=== PATIENT | male | born 1985 | race Caucasian/White ===

== ENCOUNTER 2019-05-24 02:12 | Emergency (ER) | payer OTHER ==
[~2019-05-24] VITALS: Ht 170.2 cm; Wt 108.9 kg
[2019-05-24 02:20] VITALS: BP 162/114
--- NOTE | 2019-05-24 02:20 | NUR ---
Note dick in EDM - 05/24/19 at 0425 by LEONOR ED Nurse Note: pt walked in c/o pain when urinating x 2wk. hx kidney stones. pt was able to provided urine specimen.
--- NOTE | 2019-05-24 02:20 | NUR ---
ED Nurse Note: pt walked in c/o pain when urinating x 2wk. hx kidney stones. pt was able to provide urine specimen. at bedside. pt placed in gown. bed at lowest position with x 2 siderails.
--- NOTE | 2019-05-24 02:20 | NUR ---
Note dick in EDM - 05/24/19 at 0224 by LEONOR ED Nurse Note: pt walked in c/o pain when urinating x 2wk. hx kidney stone
--- NOTE | 2019-05-24 02:34 | Emergency Room Report ---
History of Present Illness General Chief Complaint: Male Urogenital Problems Source: Patient Present Illness HPI This a 33-year-old male with a history of kidney stone. Presents with chief complaint of some dysuria and pain. Onset and off for last 2 weeks or worsen tonight. Pain is 3 out of 10. Worse with urination. No blood. No fever chills. States similar to his previous kidney stone. Denies any other complaint. Allergies: Coded Allergies: No Known Allergies (Unverified , 05/24/19) Patient History Past Medical History: see triage record, old chart reviewed Past Surgical History: none Pertinent Family History: none Social History: Denies: smoking Immunizations: other Reviewed Nursing Documentation: PMH: Agreed; PSxH: Agreed Nursing Documentation-PMH Past Medical History: No History, Except For Hx Dialysis: No - KIDNEY STONE Review of Systems Eye: Denies: eye pain, blurred vision ENT: Denies: ear pain, nose congestion, throat swelling Respiratory: Denies: cough, shortness of breath Cardiovascular: Denies: chest pain, palpitations Gastrointestinal: Denies: abdominal pain, diarrhea, nausea, vomiting Genitourinary: Reports: dysuria Musculoskeletal: Denies: back pain, joint pain Skin: Denies: rash Neurological: Denies: headache, numbness Endocrine: Denies: increased thirst, increased urine Hematologic/Lymphatic: Denies: easy bruising All Other Systems: negative except mentioned in HPI Physical Exam Vital Signs Date Time Temp Pulse Resp B/P (MAP) Pulse Ox O2 Delivery O2 Flow Rate FiO2 05/24/19 02:16 98.1 86 18 162/114 (130) 95 Room Air Vitals with high blood pressure Sp02 EP Interpretation: reviewed, normal General Appearance: well appearing, no apparent distress, alert Head: normocephalic, atraumatic Eyes: bilateral eye PERRL, bilateral eye EOMI ENT: hearing grossly normal, normal pharynx Neck: full range of motion, supple, no meningismus Respiratory: chest non-tender, lungs clear, normal breath sounds Cardiovascular #1: regular rate, rhythm, no murmur Gastrointestinal: normal bowel sounds, non tender, no mass, no organomegaly, no bruit, non-distended Musculoskeletal: back normal, gait/station normal, normal range of motion Psychiatric: mood/affect normal Medical Decision Making Diagnostic Impression: Primary Impression: Ureteral calculus, left Additional Impression: Hypertension Qualified Codes: I10 - Essential (primary) hypertension ER Course Patient presents with ureteral stone and renal colic. He does have mild left hydronephrosis pain is better control. No evidence of any appendicitis or infection. Will discharge home. CT/MRI/US Diagnostic Results CT/MRI/US Diagnostic Results : Imaging Test Ordered: CT abdomen and pelvis Impression Read by radiologist. 3 mm left UVJ stone with mild left hydronephrosis. Last Vital Signs Date Time Temp Pulse Resp B/P (MAP) Pulse Ox O2 Delivery O2 Flow Rate FiO2 05/24/19 02:20 98.1 86 18 162/114 95 Room Air Status: improved Disposition: HOME, SELF-CARE Condition: Stable Scripts Tamsulosin HCl (Flomax) 0.4 Mg Cap.er.24h 0.4 MG ORAL DAILY, #30 CAP Prov: Marky Carlson MD 05/24/19 Ibuprofen* (MOTRIN*) 600 Mg Tablet 600 MG ORAL THREE TIMES A DAY, #30 TAB 0 Refills Prov: Marky Carlson MD 05/24/19 Hydrocodone/Acetaminophen 5-325* (HYDROCODONE/ACETAMINOPHEN 5-325*) 1 Each Tablet 1 TAB ORAL Q6H PRN for For Pain, #15 TAB 0 Refills Prov: Marky Carlson MD 05/24/19 Additional Instructions: Increase fluids. Cut down salt intake. Increase exercise. Follow-up with your doctor in 7 days. You will need recheck on your blood pressure. You may need a referral to see a urologist for your kidney stone. Return if worse. Marky Carlson MD May 24, 2019 02:34
--- NOTE | 2019-05-24 02:41 | NUR ---
ED Nurse Note: pt left for CT
[2019-05-24 02:43] LABS: APPEARANCE,URINE SLIGHTLY CLOUDY; BILIRUBIN, URINE NEGATIVE (NEGATIVE); GLUCOSE, URINE (UA) NEGATIVE (NEGATIVE); KETONES,URINE 1+ (NEGATIVE); LEUKOCYTE ESTERASE ,URINE 1+ (NEGATIVE); NITRITE,URINE NEGATIVE (NEGATIVE); PH,URINE 5 (4.5-8.0); PROTEIN,URINE 3+ (NEGATIVE); UROBILINOGEN,URINE 1 MG/DL (0.0-1.0)
[2019-05-24 02:44] LABS: COLOR,URINE YELLOW
--- NOTE | 2019-05-24 03:18 | Diagnostic Imaging Report ---
Indication: Abdominal pain for 2 days Technique: Spiral acquisitions obtained through the abdomen and pelvis. No oral contrast utilized, per emergency room physician request No IV contrast utilized, per referring physician request.. Multiplanar reconstructions were generated. Total dose length product 1085.02 mGycm. CTDIvol(s) 19.28 mGy. Dose reduction achieved using automated exposure control Comparison: None Findings: There is a 2 mm calculus within the distal left ureter at the ureteral orifice. This results in mild ectasia of the left ureter and minimal hydronephrosis. There is also a 2 mm nonobstructing duct upper pole intrarenal calculus. No right renal or ureteral calculi, hydronephrosis, or hydroureter. No significant perinephric fat stranding. Lack of IV contrast limits assessment of the renal parenchyma. No gross renal parenchymal mass or cyst demonstrated. Normal appendix. Somewhat prominent pericecal nodes are seen in the right lower quadrant. There are small colonic diverticula present. No evidence of diverticulitis. No small bowel distention. No free or loculated intraperitoneal gas or fluid is evident. The distal esophagus, stomach, duodenum are unremarkable. Lack of IV contrast limits assessment of the other solid organs. The liver is mildly hypoattenuating. No focal abnormality. The gallbladder is contracted, unremarkable. The pancreas demonstrates a calcification in the tail. The spleen is mildly enlarged, measuring 14.3 cm long axis dimension. There is a small accessory splenule. The adrenals are unremarkable. No pelvic mass or adenopathy. The included lung bases are clear. The bones are unremarkable. Impression: Positive for 2 mm distal left ureteral calculus. Minimal resultant hydronephrosis and hydroureter. Nonobstructive 2 mm left upper pole intrarenal calculus Borderline splenomegaly Colonic diverticulosis. No evidence of diverticulitis Fatty liver This agrees with the preliminary interpretation provided overnight by [facility] teleradiology service. The CT scanner at [facility] is accredited by the [employer] and the scans are performed using protocols designed to limit radiation exposure to as low as reasonably achievable to attain images of sufficient resolution adequate for diagnostic evaluation.
[2019-05-24] MEDS ORDERED: HYDROcodone/Acetamin 5/325 tab ORAL ONE (03:30)
[2019-05-24] MEDS ORDERED: Ketorolac 30mg Inj IV ONE (03:30)
[2019-05-24] MEDS ORDERED: Morphine Sulfate 4mg/ml Inj (IV USE ONLY) IVP ONE (03:30)
--- NOTE | 2019-05-24 03:35 | NUR ---
ED Nurse Note: Blood sent to labs.
[2019-05-24 03:48] VITALS: BP 145/93
[2019-05-24 03:54] LABS: BASOPHILS % (AUTO) 1.2 % (0.0-2.0); EOSINOPHILS % (AUTO) 1.4 % (0.0-3.0); HEMATOCRIT 49.5 % (42.0-52.0); HEMOGLOBIN 16.7 G/DL (14.2-18.0); LYMPHOCYTES % (AUTO) 34.6 % (20.0-45.0); MEAN CORPUSCULAR VOLUME 84 FL (80-99); MONOCYTES % (AUTO) 6.3 % (1.0-10.0); NEUTROPHILS % (AUTO) 56.5 % (45.0-75.0); PLATELET COUNT 337 K/UL (150-450); RED BLOOD COUNT 5.88 M/UL (4.70-6.10); RED CELL DISTRIBUTION WIDTH 12.1 % (11.6-14.8); WHITE BLOOD COUNT 9.4 K/UL (4.8-10.8)
[2019-05-24 04:03] LABS: ANION GAP 11 mmol/L (5-15); BLOOD UREA NITROGEN 18 mg/dL (7-18); CALCIUM 9.5 MG/DL (8.5-10.1); CARBON DIOXIDE 26 MMOL/L (21-32); CHLORIDE 106 MMOL/L (98-107); CREATININE 1.1 MG/DL (0.55-1.30); POTASSIUM 4.2 MMOL/L (3.5-5.1); SODIUM 142 MMOL/L (136-145)
[2019-05-24] MEDS ORDERED: HYDROCODON-ACE1 EA15 ORAL (04:19)
[2019-05-24] MEDS ORDERED: FLOMAX0.4 MG ORAL (04:19)
[2019-05-24] MEDS ORDERED: IBUPROFEN600 MG ORAL (04:19)
[2019-05-24] MEDS ORDERED: PERCOCET 5-3251 EACH ORAL (04:28)
[2019-05-24 04:35] VITALS: BP 140/88
--- NOTE | 2019-05-24 04:35 | NUR ---
ER DISCHARGE NOTE: Patient is cleared to be discharged per ERMD, pt is aox4, on room air, with stable vital signs. pt was given dc and prescription instructions, pt was able to verbalize understanding, pt id band and iv site removed without complications. pt is able to ambulate with steady gait. pt took all belongings.
== END 2019-05-24 04:35 | disposition home or self-care (01) ==
LOC: EMR 02:30
DX: N13.2 Hydronephrosis with renal and ureteral calculous obstruction (principal); Z87.442 Personal history of urinary calculi; I10 Essential (primary) hypertension
CPT/HCPCS: 36415; 74176; 80048; 81003; 85025; 96361; 96374; 96375; 99284; J1885; J2270; J2405

== ENCOUNTER 2020-03-11 13:01 | Emergency (ER) | payer OTHER ==
[~2020-03-11] VITALS: Ht 172.7 cm; Wt 102.1 kg
[~2020-03-11 13:01] MED LIST: FLOMAX0.4 MG ORAL; HYDROCODON-ACE1 EA15 ORAL; IBUPROFEN600 MG ORAL; PERCOCET 5-3251 EACH ORAL
[2020-03-11 13:13] VITALS: BP 177/95
[2020-03-11] MEDS ORDERED: Omnipaque-300 100ml vial INJ PRN (13:15)
[2020-03-11] MEDS ORDERED: Ketorolac 30mg Inj IV ONE (13:15)
--- NOTE | 2020-03-11 13:15 | NUR ---
ED Nurse Note: Pt from home walked in due to localized left flank pain and urinary urgency since this morning. Denies fever or chills. No reports of blood in his urine. AAO x4 and ambulatory with non labored breathing.
--- NOTE | 2020-03-11 13:37 | NUR ---
ED Nurse Note: Blood collected and sent. Estrella/JASMIN adhikari for pt to drink water. Water provided at this time.
[2020-03-11 13:48] LABS: BASOPHILS % (AUTO) 0.8 % (0.0-2.0); EOSINOPHILS % (AUTO) 1.6 % (0.0-3.0); HEMATOCRIT 54.5 % (42.0-52.0); HEMOGLOBIN 17.7 G/DL (14.2-18.0); LYMPHOCYTES % (AUTO) 29.9 % (20.0-45.0); MEAN CORPUSCULAR VOLUME 89 FL (80-99); MONOCYTES % (AUTO) 4.3 % (1.0-10.0); NEUTROPHILS % (AUTO) 63.4 % (45.0-75.0); PLATELET COUNT 328 K/UL (150-450); RED BLOOD COUNT 6.15 M/UL (4.70-6.10); RED CELL DISTRIBUTION WIDTH 12.4 % (11.6-14.8); WHITE BLOOD COUNT 9.2 K/UL (4.8-10.8)
[2020-03-11 13:58] LABS: INR 1.1 (0.9-1.1)
[2020-03-11 14:00] LABS: APPEARANCE,URINE CLEAR; BILIRUBIN, URINE NEGATIVE (NEGATIVE); GLUCOSE, URINE (UA) NEGATIVE (NEGATIVE); KETONES,URINE 1+ (NEGATIVE); LEUKOCYTE ESTERASE ,URINE NEGATIVE (NEGATIVE); NITRITE,URINE NEGATIVE (NEGATIVE); PH,URINE 5 (4.5-8.0); PROTEIN,URINE 1+ (NEGATIVE); UROBILINOGEN,URINE NORMAL MG/DL (0.0-1.0)
[2020-03-11 14:07] LABS: ANION GAP 10 mmol/L (5-15); BLOOD UREA NITROGEN 14 mg/dL (7-18); CALCIUM 9.2 MG/DL (8.5-10.1); CARBON DIOXIDE 28 MMOL/L (21-32); CHLORIDE 102 MMOL/L (98-107); CREATININE 1.2 MG/DL (0.55-1.30); POTASSIUM 3.8 MMOL/L (3.5-5.1); SODIUM 140 MMOL/L (136-145)
[2020-03-11 14:07] LABS: COLOR,URINE YELLOW
[2020-03-11 14:12] LABS: ALANINE AMINOTRANSFERASE 45 U/L (12-78); ALBUMIN 4.5 G/DL (3.4-5.0); ALBUMIN/GLOBULIN RATIO 1.1 (1.0-2.7); ALKALINE PHOSPHATASE 120 U/L (46-116); ASPARTATE AMINO TRANSFERASE 25 U/L (15-37); BILIRUBIN,TOTAL 0.6 MG/DL (0.2-1.0); CREATINE KINASE 51 U/L (26-308)
--- NOTE | 2020-03-11 14:38 | NUR ---
ED Nurse Note: Pt taken to CT in stable condition.
--- NOTE | 2020-03-11 14:55 | NUR ---
ED Nurse Note: Pt came back from CT and stable.
[2020-03-11 15:02] VITALS: BP 165/90
--- NOTE | 2020-03-11 15:10 | Diagnostic Imaging Report ---
EXAM: CT CT Abdomen Pelvis w/Contrast INDICATION: Left flank pain and urinary urgency since this morning. COMPARISON: None TECHNIQUE: Axial images were obtained through the abdomen pelvis with intravenous contrast. Sagittal and coronal reformats are generated. All CT scans at this facility are performed using dose modulation techniques as appropriate to a performed exam including the following: automated exposure control with adjustment of the mA and/or kV according to patient size. RADIATION DOSE: CTDIvol: 16.8 mGy DLP: 919.9 mGy-cm Dose information generated by the CT scanner is available in PACS. FINDINGS: The lung bases are clear. Mild diffuse fatty liver noted. Spleen is homogeneous Gallbladder is without sludge or stone and there is no wall thickening. Pancreas is homogeneous except for punctate calcification at the patella. Adrenals are normal in morphology. The kidneys are normal in size, shape and axis. Small bowel loops are nondistended. The colon is also nondistended with average amount of stool. The appendix is normal. There is no free fluid or free air. A few small lymph nodes identified in the right lower quadrant mesentery. Bladder is nondistended. There are 2 small fat density foci noted in the bladder wall along the anterior and also the left lateral margin. Findings suggest possible small bladder wall lipomas. There is no suspicious superficial soft tissue or osseous abnormality. IMPRESSION: THERE ARE 2 SMALL FAT DENSITY FOCI NOTED IN THE BLADDER WALL, ALONG THE ANTERIOR AND LEFT LATERAL MARGINS SUGGESTIVE OF SMALL BLADDER WALL LIPOMAS. MILD FATTY LIVER. NO RENAL STONE OR HYDRONEPHROSIS.
--- NOTE | 2020-03-11 16:46 | Diagnostic Imaging Report ---
Procedure: XRAY Chest 1v Reason for study: Chest pain Comparison films: None. FINDINGS: A single one view chest is obtained. Vascularity is normal. The lung nathan are clear bilaterally. Cardiac and mediastinal silhouette are within normal limits. CP angles are sharp. The bony thorax appear unremarkable. IMPRESSION: NO ACUTE CARDIOPULMONARY DISEASE.
--- NOTE | 2020-03-11 16:55 | Emergency Room Report ---
History of Present Illness General Chief Complaint: Pain Source: Patient Present Illness HPI 34-year-old male with history of recurrences of renal stone here complaining of left flank pain with some urinary urgency that started last night. Patient reports in the past couple years has had 5 episodes of renal stone. Patient denies any strenuous physical activity in the past couple days. Reports he has been drinking a lot of fluids. Denies any fever and chills, nausea vomiting at this time. Denies any diffuse abdominal pain. No CVA tenderness noted. Rates the pain 5 out of 10 and intermittent. Has not taken medication for symptom relief. Denies chest pain, shortness of breath, headache and dizziness. Denies penile discharge. Allergies: Coded Allergies: No Known Allergies (Unverified , 05/24/19) COVID-19 Screening Contact w/high risk pt: No Recent Travel to affected area: No Experienced COVID-19 symptoms?: No COVID-19 Testing performed MAINTENANCE MAN: No Patient History Past Medical History: see triage record Past Surgical History: none Pertinent Family History: none Immunizations: UTD Reviewed Nursing Documentation: PMH: Agreed; PSxH: Agreed Nursing Documentation-PMH Hx Dialysis: No - KIDNEY STONE Review of Systems All Other Systems: negative except mentioned in HPI Physical Exam Vital Signs Date Time Temp Pulse Resp B/P (MAP) Pulse Ox O2 Delivery O2 Flow Rate FiO2 03/11/20 13:05 98.2 99 18 179/123 (141) 98 Sp02 EP Interpretation: reviewed, normal General Appearance: no apparent distress, alert, GCS 15, non-toxic Head: normocephalic, atraumatic Eyes: bilateral eye normal inspection, bilateral eye PERRL ENT: hearing grossly normal, normal pharynx, no angioedema, normal voice Neck: full range of motion, supple/symm/no masses Respiratory: chest non-tender, lungs clear, normal breath sounds, no rhonchi, no retraction, no wheezing, speaking full sentences Cardiovascular #1: regular rate, rhythm, no edema, no murmur, normal capillary refill Gastrointestinal: normal bowel sounds, non tender, soft, non-distended, no guarding, no rebound Genitourinary: no CVA tenderness Musculoskeletal: back normal Neurologic: alert, motor strength/tone normal, oriented x3, sensory intact, responsive, speech normal Psychiatric: judgement/insight normal, memory normal, mood/affect normal, no suicidal/homicidal ideation Skin: no rash Lymphatic: no adenopathy Medical Decision Making PA Attestation All diagnoses and treatment plans were reviewed and discussed with my supervising physician Dr. Lamas Diagnostic Impression: Primary Impression: Renal stone Additional Impression: Lipoma ER Course 34-year-old male with history of recurrences of renal stone here complaining of left flank pain with some urinary urgency that started last night. Patient reports in the past couple years has had 5 episodes of renal stone. Patient denies any strenuous physical activity in the past couple days. Reports he has been drinking a lot of fluids. Denies any fever and chills, nausea vomiting at this time. Denies any diffuse abdominal pain. No CVA tenderness noted. Rates the pain 5 out of 10 and intermittent. Has not taken medication for symptom relief. Denies chest pain, shortness of breath, headache and dizziness. Denies penile discharge. Ddx considered but are not limited to: UTI, pyelonephritis, renal stone obstructive, renal stone nonobstructive Vital signs: are WNL, pt. is afebrile H&PE are most consistent with: Nonobstructive renal stone as patient passed during his visit today at ED and it was visualized in the urine patient did not complain of any pain after , lipoma and the bladder ORDERS: abdominal CT, renal ultrasound, abdominal pain order set, tamsulosin, Motrin, Zofran ED INTERVENTIONS: NS bolus, morphine, Zofran, Pepcid DISCHARGE: At this time pt. is stable for d/c to home. Will provide printed patient care instructions, and any necessary prescriptions. Care plan and follow up instructions have been discussed with the patient prior to discharge. Patient to follow-up with her urologist, take medication as directed, increase oral hydration, if worsening symptoms return to the emergency room Chest X-Ray Diagnostic Results Chest X-Ray Diagnostic Results : Chest X-Ray Ordered: Yes # of Views/Limited/Complete: 1 View Indication: Other EP Interpretation: Yes PA Xray: Interpretation reviewed, by supervising MD, and agrees with findings. Interpretation: no consolidation, no effusion, no pneumothorax Impression: No acute disease Electronically Signed by: Estrella Guevara PA-C CT/MRI/US Diagnostic Results CT/MRI/US Diagnostic Results #1: Imaging Test Ordered: CT abdomen pelvis with contrast Impression Lipomas noted in bladder, otherwise within normal limits CT/MRI/US Diagnostic Results #2: Imaging Test Ordered: Renal ultrasound Impression No stones noted and no hydronephrosis noted Last Vital Signs Date Time Temp Pulse Resp B/P (MAP) Pulse Ox O2 Delivery O2 Flow Rate FiO2 03/11/20 14:01 98.2 03/11/20 13:13 89 16 177/95 99 Disposition: HOME, SELF-CARE Condition: Stable Scripts Ondansetron (Zofran) 4 Mg Tablet 4 MG ORAL Q6H PRN for Nausea & Vomiting, #20 TAB Prov: Estrella Thomas 03/11/20 Ibuprofen* (MOTRIN*) 600 Mg Tablet 600 MG ORAL Q6H PRN for For Pain, #30 TAB 0 Refills Prov: Estrella Thomas 03/11/20 Tamsulosin HCl (Flomax) 0.4 Mg Cap.er.24h 0.4 MG ORAL DAILY for 7 Days, #7 CAP Prov: Estrella Thomas 03/11/20 Patient Instructions: Flank Pain, [id number], Lipoma Additional Instructions: Take medication as directed, follow with your primary doctor for referral to urologist, if worsening symptoms return to the emergency room. Increase oral hydration. Estrella Thomas Mar 11, 2020 16:55
[2020-03-11] MEDS ORDERED: FLOMAX0.4 MG ORAL (16:57)
[2020-03-11] MEDS ORDERED: IBUPROFEN600 M1 ORAL (16:57)
[2020-03-11] MEDS ORDERED: ZOFRAN4 M1 ORAL (16:57)
[2020-03-11 17:04] VITALS: BP 161/90
--- NOTE | 2020-03-11 17:04 | NUR ---
ER DISCHARGE NOTE: Patient is cleared to be discharged per PA, pt is aox4, on room air, with stable vital signs. pt was given dc and prescription instructions, pt was able to verbalize understanding, pt id band and iv site removed without complications. pt is able to ambulate with steady gait. pt took all belongings.
--- NOTE | 2020-03-11 17:05 | Diagnostic Imaging Report ---
EXAM: ULTRASOUND US Renal Comp CLINICAL HISTORY: Abdominal pain. COMPARISON: None TECHNIQUE: Ultrasound examination of the kidneys includes grayscale images, and color and spectral doppler analysis. FINDINGS: The right kidney measures 10.8 x 5.3 x 6 cm and the left kidney measures 10.4 x 6.1 x 5.7 cm. Cortical thickness and echogenicity are within normal limits. There is no hydronephrosis or stone seen bilaterally. Urinary bladder appears unremarkable. IMPRESSION: UNREMARKABLE RENAL ULTRASOUND.
== END 2020-03-11 17:04 | disposition home or self-care (01) ==
LOC: EMR 16:45
DX: N20.0 Calculus of kidney (principal); D17.72 Benign lipomatous neoplasm of other genitourinary organ
CPT/HCPCS: 36415; 71045; 74177; 76770; 80053; 81003; 82550; 83690; 84484; 85025; 85610; 85730; 93005; 96361; 96374; 96375; 99284; J1885; J2405; J7030; Q9967